=== PATIENT | female | born 1990 | race Caucasian/White ===

== ENCOUNTER 2018-05-12 18:11 | Inpatient (IN) | payer OTHER ==
[~2018-05-12] VITALS: Ht 165.1 cm; Wt 100.8 kg
[~2018-05-12 18:11] MED LIST: ASCO25TA PO; PRENTAB9 PO; VITA200016 PO; VITATAB11 PO
[2018-05-12 19:31] LABS: HEMATOCRIT 35.5 % (36.0-47.0); HEMOGLOBIN 11.9 g/dl (12.0-15.5); MEAN CORPUSCULAR HEMOGLOBIN 30.4 pg (27.0-33.0); MEAN CORPUSCULAR HGB CONC 33.5 g/dl (32.0-36.5); MEAN CORPUSCULAR VOLUME 90.6 fl (80.0-96.0); PLATELET COUNT, AUTOMATED 208 10^3/uL (150-450); RED BLOOD COUNT 3.92 10^6/uL (4.00-5.40); WHITE BLOOD COUNT 10.3 10^3/uL (4.0-10.0)
[2018-05-12 19:53] VITALS: BP 113/68
[2018-05-12] MEDS: LR 1,000 ML IV SCH (20:32)
[2018-05-12] MEDS: VANCOMYCIN HCL 1,000 MG, VIAL MATE ADAPTER 1 EACH in D5W 250 ML IV SCH (20:45)
[2018-05-12] MEDS ORDERED: OXYTOCIN DRIP 30 UNITS in APPROPRIATE DILUENT 1 EA IV SCH (20:45)
--- NOTE | 2018-05-12 21:47 | REPVR ---
EXAM: US First Trimester, Transabdominal EXAM DATE/TIME: 05/12/2018 8:35 PM CLINICAL HISTORY: 28 years old, female; Condition or disease; Lmp or gestational age (weeks): 41w0d; Other: HX of macrosomia; 2nd ; ; Additional info: HX of macrosomia, efw and sandrine TECHNIQUE: Real-time transabdominal obstetrical ultrasound of the maternal pelvis and a first trimester , less than 14 weeks 0 days, with image documentation. COMPARISON: No relevant prior studies available. FINDINGS: GESTATION: Gestation: Single intrauterine fetus. Heart rate: heartbeat of 144 beats per minute. motion is noted. Presentation: Cephalic presentation. Placenta: Anterior placenta. Amniotic fluid: Oligohydramnios with SANDRINE of 3.0 cm. Abdomen: The kidneys, bladder and stomach appear normal. BIOMETRY: Estimated gestational age: The composite gestational age by ultrasound is 39 weeks 2 days. Estimated due date: The EDC is 05/17/2018. Estimated weight: The estimated weight is 4026 grams and is 69 %. Biparietal diameter: The BPD measures 9.3 cm suggesting an age of 38 weeks 0 days. Head circumference: The head circumference measures 33.6 cm suggesting an age of 30 weeks 4 days. Abdominal circumference: The abdominal circumference measures 37.3 cm suggesting an age of 41 weeks 2 days. Femur length: The femur length measures 7.9 cm suggesting an age of 40 weeks 2 days. DOPPLER: Umbilical artery Doppler: Umbilical cord demonstrates velocity of 62 cm/s with end-diastolic velocity of 35 cm/s. S/D ratio was 1.79 with resistive index of 0.44. MATERNAL: Uterus: Unremarkable. Cervix: Unremarkable. Right adnexa: Unremarkable. Left adnexa: Unremarkable. Intraperitoneal: No intraperitoneal free fluid. IMPRESSION: 1. Single live intrauterine fetus in cephalic presentation with a composite age of 39 weeks 10 days. The EDC is 05/17/2018. 2. Oligohydramnios with SANDRINE 3.0 cm. 3. Estimated weight is 4026 g. Electronically signed by: Vitaliy Abbott On 05/12/2018 21:46:55 PM
[2018-05-12 22:13] VITALS: BP 112/67
[2018-05-12 22:59] VITALS: BP 112/69
[2018-05-12 23:30] VITALS: BP 119/71
[2018-05-13] VITALS (39 sets, daily range): BP systolic 90–146; BP diastolic 49–71
[2018-05-13] MEDS: LR 1,000 ML IV SCH ×3 (08:00→20:32)
--- NOTE | 2018-05-13 08:22 | NUR ---
0819 am assessment re Ryder bulb and Pitocin. Category 1 strip,Pitocin at 10 munits Ryder removed cervix 70% effaced posterior 2-3 cm -2 station safe to proceed
[2018-05-13] MEDS: VANCOMYCIN HCL 1,000 MG, VIAL MATE ADAPTER 1 EACH in D5W 250 ML IV SCH (08:37)
[2018-05-13] MEDS ORDERED: FENTANYL/ROPIVACAINE/NACL BAG 100 ML EPIDURAL SCH (10:10)
[2018-05-13] MEDS ORDERED: NALOXONE INJ 0.4 MG/1 ML VIAL (J2310) IV PRN (10:10)
[2018-05-13] MEDS ORDERED: ePHEDrine SULFATE 25 MG/5 ML(5MG/ML) SYRINGE IV PRN (10:10)
[2018-05-13] MEDS ORDERED: diphenhydrAMINE INJ 50MG/ML VIAL (J1200) IV PRN (10:10)
[2018-05-13] MEDS ORDERED: REFRIGERATOR IV KEYS XX PRN (10:10)
[2018-05-13] MEDS ORDERED: EPIDURAL COMMENT XX SCH (10:10)
[2018-05-13] MEDS ORDERED: ONDANSETRON 4MG/2ML VIAL (J2405) IV PRN (10:10)
[2018-05-13] MEDS ORDERED: EPIDURAL/PCA KEYS XX PRN (10:10)
[2018-05-13] MEDS ORDERED: LACTATED RINGER'S 1000 ML IV PRN (10:10)
--- NOTE | 2018-05-13 16:43 | NUR ---
post epidural assessment patient 5-6 cm 100% effaced -2 station not well applied catagory 1 strip. Assessment at 1640 deep variables with recovery now 9 cm not well applied suggest reduce pitocin os by mask fluid bolus safe to proceed
[2018-05-13 20:22] LABS: CORD GAS ABE A -2.8; CORD GAS HCO3 A 20.1 MEQ/L; CORD GAS O2 SAT A 81.5 %; CORD GAS PCO2 A 30.2 mmHg; CORD GAS PH A 7.442 UNITS; CORD GAS PO2 A 34.7 mmHg; CORD GAS SBC A 21.8 MEQ/L; CORD GAS TCO2 A 21.1 MEQ/L
[2018-05-13 20:27] LABS: CORD GAS ABE V -2.6; CORD GAS HCO3 V 20.7 MEQ/L; CORD GAS O2 SAT V 80.6 %; CORD GAS PH V 7.429 UNITS; CORD GAS PO2 V 33.8 mmHg; CORD GAS SBC V 21.9 MEQ/L; CORD GAS TCO2 V 21.7 MEQ/L
[2018-05-13] MEDS ORDERED: DIBUCAINE 1% OINTMENT 30GM TOP PRN (20:30)
[2018-05-13] MEDS ORDERED: DOCUSATE SODIUM 100 MG CAP PO PRN (20:30)
[2018-05-13] MEDS ORDERED: METHYLERGONOVINE MALEATE 0.2 MG TAB PO PRN (20:30)
[2018-05-13] MEDS ORDERED: MOM 30ML SUSPENSION UDC PO PRN (20:30)
[2018-05-13] MEDS ORDERED: IBUPROFEN 800 MG TAB PO PRN (20:30)
[2018-05-13] MEDS ORDERED: MEASLES,MUMPS,RUBELLA VACCINE INJ (MMR-II) (90707) SC SCH (20:30)
[2018-05-13] MEDS ORDERED: ACETAMINOPHEN 500 MG TAB PO PRN (20:30)
[2018-05-13] MEDS ORDERED: RHOGAM 300 MCG (1500 IU) INJ (J2790) IM SCH (20:30)
[2018-05-14 06:00] VITALS: BP 98/54
[2018-05-14 07:24] LABS: HEMATOCRIT 32.8 % (36.0-47.0); HEMOGLOBIN 10.6 g/dl (12.0-15.5); MEAN CORPUSCULAR HEMOGLOBIN 29.9 pg (27.0-33.0); MEAN CORPUSCULAR HGB CONC 32.3 g/dl (32.0-36.5); MEAN CORPUSCULAR VOLUME 92.7 fl (80.0-96.0); PLATELET COUNT, AUTOMATED 185 10^3/uL (150-450); RED BLOOD COUNT 3.54 10^6/uL (4.00-5.40)
[2018-05-14 08:00] VITALS: BP 122/86
[2018-05-14] MEDS: PRENATAL VITAMINS CHEWABLE TABLET PO SCH (08:23)
[2018-05-14 10:01] VITALS: BP 98/54
--- NOTE | 2018-05-14 11:45 | HPE ---
DATE: 05/12/2018 This lady is a 28-year-old, 5, para 1, aborto 2, TPALG/T-1, P-1, A-2, L-1, G-5, LMP 07/29/2017, EDC 05/05/2018 at 41 weeks of gestation for induction of labor, previous history of macrosomia with shoulder dystocia and chorioamnionitis. Risk factors is she is post-term, she has a history of chorioamnionitis, shoulder dystocia, atonic uterus, BMI of 34.11 and GBS positive. PAST HISTORY: In July 2016 at 40 weeks had a vacuum delivery, 8 pounds 3 ounces male with chorio-atonic uterus second-degree tear aspiration meconium and the baby spent a week in NICU. June 2015 at 20 weeks and 3 days spontaneous vaginal delivery male with respiratory arrest. July 2013 at 6 weeks spontaneous . 12/2010 9 weeks spontaneous . PHYSICAL EXAMINATION: No distress. She is quite hirsute. Symphysis fundus height is 40, vertex -3, very posterior 2 cm soft. Hemoglobin 11.9, hematocrit 35.5, platelets 208, blood pressure 116/72, respirations 18, pulse 96, temperature 98.3. Urine is 1000, pH 7 and negative. LABORATORY WORK: Show she is O positive+, HIV negative, hepatitis negative, RPR negative, rubella immune. Varicella immune. Pap normal. Urine was negative. Gonorrhea and chlamydia negative. 1-hour glucose initially was 88.3, 1 hour at 28 weeks was 93 and she is GBS positive. Ultrasound performed today shows an SANDRINE of 3.0 documenting oligohydramnios, estimated weight is 4026 grams, 8 pounds 9 ounces. Hemoglobin 11.9, hematocrit 35.5, platelets are 208. Presently has a category 1 strip with accelerations, no contractions. Normocephalic, atraumatic. Neck full range of motions. Pupils equal and reactive to light. Distal pulses symmetric. No evidence of deep venous thrombosis (DVT), pulmonary embolism (PE) or superficial phlebitis. Lungs are clear bilaterally bases. No wheezes or rhonchi. No CVA tenderness. Abdomen soft. Uterus is symphysis fundus height is appropriate. Four quadrant bowel sounds are noted. A lot of keloid forming on her abdomen. She has no rashes, lesions or pruritus. No arthralgia, myalgia or complaining of joint pain. No complaint of cough, wheeze, shortness of breath or dyspnea on exertion. Not bleeding. Neuro complete. No incontinency, urgency, or frequency. No nausea, vomiting, diarrhea or constipation. No diabetic issues. Gyne history is unremarkable outside the fact she has polycystic ovary syndrome (PCOS). PAST MEDICAL: Unremarkable. SURGICAL: Multiple surgeries, cyst on ovary and orthopedic surgery, dilatation and curettage (D C). FAMILY HISTORY: Is noncontributory. SOCIAL HISTORY: She does not smoke, drink, abuse drugs. She is to a soldier. No domestic violence. ALLERGIES: She has significant allergies to PENICILLIN and SULFA. Therefore for Group B streptococcus (GBS) status we are going to to use vancomycin as this was noted to be sensitive. We discussed the risks and benefits of shoulder dystocia including but not excluding all issues such as atonic uterus chorioamnionitis because of her GBS status failure to descend, failure to dilate, tachycardia and non-reassuring heart tones because of oligohydramnios. Consent for vaginal delivery was delivery of baby through the vagina with possible assistance of forceps or vacuum if needed as she had before because of maternal tachycardia or maternal atony failure to descend or failure to be able to push the fetus out vacuum or forceps or devices can assist with a vaginal delivery when normal pushing efforts cannot achieve delivery on their own or when deliveries needed in emergency for baby's well-being. Also the risk as she had before of a second-degree tear or vaginal lacerations are possible. Medications may be require to induce or augment the labor in order achieve vaginal delivery. We discussed the Cook's catheter in conjunction with oxytocin as opposed to misoprostol because of the ability to turn it off immediately if there is some distress and episiotomy may be required to help deliver the baby as apposed to allowing an extended tear. Also may require emergency section so quickly that there may not be time to full consent but will discuss the issues and reasons for section which is through the abdomen in some situations section may be safer for the mother and baby to continue labor and is only performed when clinically indicated. The risk of vaginal delivery include bleeding, infection, injury to the vagina, pelvic structures, injury to the baby, damage to the uterus, reactions to anesthesia, uterine rupture, risk of hysterectomy for life-threatening bleeding, blood transfusions and in rare instances . Medications used would be Pitocin which increases the risk of uterine tachysystole heart rate abnormalities and the need for emergency section. Also there is a possibility of bleeding, risk of bruising to the baby or laceration to the baby or intracranial bleeding or hematomas on the head. After discussing risks and benefits and after reviewing her history previously and expressed understanding and are willing to go ahead and have induction of labor. We were able to use the Cook's catheter and placing 60 mL in the cervical portion and 40 mL in the vaginal portion, vancomycin 1 gram every 12 hours was initiated. The patient has a category 1 strip and anesthesia consult was initiated.
--- NOTE | 2018-05-14 17:12 | DN ---
DATE: 05/13/2018 DELIVERY NOTE: This lady is a 28-year-old, 5, now para 2 was admitted for induction of labor at 41 weeks of gestation with a history of oligohydramnios, previous history of shoulder dystocia. She had a Ryder bulb Pitocin augmentation. She eventually had an ARM of minimal fluid and with epidural in place had a spontaneous vaginal delivery of a live male infant, 8 pounds 2 ounces, 3680 grams, scores of 8 and 9 at 1 and 5 minutes respectively. Arterial and venous pH performed. Massive amounts of meconium were noted. Dr. Allen in attendance for resuscitation. The uterus contracted well down on Pitocin. Three-vessel cord. Membranes and tissues intact. Perineum was intact. Anterior and posterior lateral pérez and sphincter were intact. The patient and baby tolerating procedure well. She was adequately treated for her GBS.
--- NOTE | 2018-05-14 17:23 | IPN ---
DATE: 05/14/2018 This is a 28-year-old 5, now para 2 admitted for induction of labor at 41 weeks of gestation because of oligohydramnios, had a previous history of shoulder dystocia and meconium aspiration, intensive care unit stay times one week, second-degree tear. Body mass index (BMI) is 34.11. Group B Streptococcus (GBS) was positive and appropriately treated with antibiotic therapy. The patient commenced induction of labor with Ryder bulb, Pitocin, artificial rupture of membranes (AROM), eventually had a spontaneous vaginal delivery with epidural in place, male, 8 pounds, 2 ounces, 3680 grams. scores of 8 and 9 at one and five minutes respectively. Arterial pH 7.44, base excess -2.8, venous pH 7.42, base excess -2.6. Her admitting hemoglobin 11.9, hematocrit 35.5 and platelets were 208. Her vital signs, today her blood pressure is 98/54, respirations are 70, pulse 85, temperature 98.4. We discussed phlebitis, cystitis, mastitis, endometritis and cellulitis, diet, exercise, pain management, perineal, breast and wound care. The patient is planning on breast-feeding at home. Will do Nexplanon at her six-week checkup. Otherwise, voiding, passing gas and is anxious for discharge tomorrow. She was appropriately treated for GBS positive and baby is being cared for in the nursery. In summary, we have a late term gestation, delivered a live male infant. Dr. Allen in attendance for resuscitation.
[2018-05-14 18:00] VITALS: BP_SYST 100; BP_SYST 130; BP_DIAS 58; BP_DIAS 78
[2018-05-15 05:38] VITALS: BP 109/56
--- NOTE | 2018-05-15 07:31 | IPNPDOC ---
Text Note Date of Service The patient was seen on 05/15/18. NOTE PPD1 States feeling well, pain controlled with prescribed meds. Baby bonding and feeding well. No heavy VB. Lochia slowing. Ambulatory. Tolerating PO without issues. Voiding spont. No CP/LP/SOB. VSSAF NAD A&O LE no C/C/E Ut at U-1, firm a/p: Doing well. Cont routine care. D/C today. Sessions VS,Sandip, I+O VSSandip, I+O Vital Signs Date Time Temp Pulse Resp B/P (MAP) Pulse Ox O2 Delivery O2 Flow Rate FiO2 05/15/18 05:38 98.2 80 18 109/56 (73) 05/14/18 18:00 99 SESSIONS,KATHARINE Koroma MD May 15, 2018 07:30
--- NOTE | 2018-05-15 07:33 | DS.PDOC ---
Discharge Summary General Date of Admission May 12, 2018 at 18:11 Date of Discharge [id number] Discharge Summary ADMITTING DIAGNOSES: Active labor DISCHARGE DIAGNOSES: Same, HOSPITAL COURSE: Admitted and delivery uncomplicated, . course uncomplicated. DISCHARGE MEDICATIONS: Motrin, Lanolin, Tylenol DISCHARGE INSTRUCTIONS: Nothing in the vagina for 6 weeks. F/U in OBGYN clinic in 6-8 weeks. Sessions Vital Signs/I&Os Vital Signs Date Time Temp Pulse Resp B/P (MAP) Pulse Ox O2 Delivery O2 Flow Rate FiO2 05/15/18 05:38 98.2 80 18 109/56 (73) 05/14/18 18:00 99 Discharge Medications Scheduled Ascorbic Acid (Vitamin C) 250 Mg Tab, 1 TAB PO DAILY, (Reported) B1/B2/B3/B5/B6 (Vitamin B Complex) 1 Tab Tab, 1 TAB PO DAILY, (Reported) Multivitamins/ ( 27-0.8 mg) 1 Tab Tab, 1 TAB PO DAILY, (Reported) Vitamin D (Vitamin D) 2,000 Unit Cap, 1 CAP PO DAILY, (Reported) Allergies Coded Allergies: Sulfa Antibiotics (Verified Allergy, Intermediate, HIVES FROM HEAD TO TOE, 05/12/18) TAPE (Verified Allergy, Mild, tegaderm - HIVES, SEVERE REDNESS AND BURNING, 05/12/18) Penicillins (Verified Allergy, Unknown, HIVES, SEVERE REDNESS AND BURNING, 03/09/18) SESSIONS,KATHARINE Koroma MD May 15, 2018 07:33
[2018-05-15] MEDS: PRENATAL VITAMINS CHEWABLE TABLET PO SCH (08:02)
[2018-05-15] MEDS ORDERED: MILK120011 PO (10:09)
[2018-05-15] MEDS ORDERED: COLA100C5 PO (10:09)
[2018-05-15] MEDS ORDERED: IBUP-1114 PO (10:09)
[2018-05-15] MEDS ORDERED: MAPA500T2 PO (10:09)
== END 2018-05-15 12:45 | disposition home or self-care (01) | DRG 806 ==
LOC: M LDI 18:11 → M OBS 05-14 06:20
PROVIDERS: ADMIT Obstetrics & Gynecology; ATTEND Obstetrics & Gynecology
PROC: 3E033VJ Introduction of Other Hormone into Peripheral Vein, Percutaneous Approach (ICD-10-PCS; 2018-05-12)
PROC: 10E0XZZ Delivery of Products of Conception, External Approach (ICD-10-PCS; principal; 2018-05-13)
PROC: 10907ZC Drainage of Amniotic Fluid, Therapeutic from Products of Conception, Via Natural or Artificial Opening (ICD-10-PCS; 2018-05-13)
DX: O48.0 Post-term pregnancy (principal); Z37.0 Single live birth; O41.03X0 Oligohydramnios, third trimester, not applicable or unspecified; Z3A.41 41 weeks gestation of pregnancy; O99.824 Streptococcus B carrier state complicating childbirth; Z88.0 Allergy status to penicillin; Z88.2 Allergy status to sulfonamides; O77.0 Labor and delivery complicated by meconium in amniotic fluid

== ENCOUNTER → 2018-10-13 | Outpatient (CLI) | payer OTHER ==
[~2018-10-13] MED LIST changes: -ASCO25TA PO; +COLA100C5 PO; +IBUP-1114 PO; +MAPA500T2 PO; +MILK120011 PO; +VITA1TAB23 PO
--- NOTE | 2018-10-13 10:48 | REP ---
HISTORY: Pain after trauma. FINDINGS: No acute fracture or destructive osseous lesion. Electronically Signed by Arnaud Hicks DO 10/13/2018 12:57 P
== END ==
LOC: M LRY 10:07
PROVIDERS: ATTEND Physician Assistant
DX: M79.632 Pain in left forearm (principal)

== ENCOUNTER → 2018-12-06 | Outpatient (CLI) | payer OTHER ==
--- NOTE | 2018-12-06 20:26 | REP ---
Left foot four views : There is no fracture or dislocation. Mineralization and joint spaces are normal. There are no calcifications or foreign bodies. Impression: Negative left foot . Electronically Signed by Kt Randhawa MD 12/06/2018 08:17 P
== END ==
LOC: M LRY 19:56
PROVIDERS: ATTEND Nurse Practitioner Family
DX: S99.922A Unspecified injury of left foot, initial encounter (principal); W10.9XXA Fall (on) (from) unspecified stairs and steps, initial encounter; Y92.9 Unspecified place or not applicable
CPT/HCPCS: 73630; 81025; 96372; G0463; J1885